=== PATIENT | female | born 1990 | race Native Hawaiian/Other Pacific Islander ===

== ENCOUNTER 2017-08-10 18:05 | Emergency (ER) | payer OTHER ==
[2017-08-10 18:24] VITALS: BP 137/65; PULSE 99; RESP 16; TEMP 98; O2SAT 100
--- NOTE | 2017-08-10 18:59 | ED PDOC ---
HPI: Skin/Bite Injury Time Seen by Provider: 08/10/17 18:39 Chief Complaint (Nursing): Lower Extremity Problem/Injury Chief Complaint (Provider): Swelling to right thigh History Per: Patient History/Exam Limitations: no limitations Onset/Duration Of Symptoms: Days (x 2) Current Symptoms Are (Timing): Still Present Additional Complaint(s): Shanna is 26 y/o female who presents to the ED complaining of swelling on her right inner thigh first noticed yesterday. Took Tylenol for pain prior to arrival with some improvement. She has noticed some drainage from the swelling. Denies fever, nausea, chills and vomiting. Swelling is causing patient pain. PMD: non-[facility] provider Past Medical History Reviewed: Historical Data, Nursing Documentation, Vital Signs Vital Signs: Last Vital Signs Temp 98 F 08/10/17 18:23 Pulse 99 H 08/10/17 18:23 Resp 16 08/10/17 18:23 BP 137/65 08/10/17 18:23 Pulse Ox 100 08/10/17 19:06 - Medical History PMH: No Chronic Diseases - Family History Family History: States: Unknown Family Hx - Home Medications Home Medications: Ambulatory Orders Medication Instructions Recorded Cephalexin [cephalexin] 500 mg PO BID #20 cap 08/10/17 Clindamycin [Cleocin] 300 mg PO TID #30 cap 08/10/17 - Allergies Allergies/Adverse Reactions: Allergies Allergy/AdvReac Type Severity Reaction Status Date / Time No Known Allergies Allergy Verified 05/30/16 20:48 Review of Systems ROS Statement: Except As Marked, All Systems Reviewed And Found Negative Constitutional: Negative for: Fever, Chills Gastrointestinal: Negative for: Nausea, Vomiting Musculoskeletal: Positive for: Leg Pain (pain and swelling at right thigh. ), Other (drainage from swelling) Physical Exam - Reviewed Nursing Documentation Reviewed: Yes Vital Signs Reviewed: Yes - Physical Exam Appears: Positive for: Non-toxic, No Acute Distress Head Exam: Positive for: ATRAUMATIC, NORMAL INSPECTION, NORMOCEPHALIC Skin: Positive for: Rash (rash: noted to right thigh-central lesion sized 1x1cm with surronding erythema with streaking warmth and tenderness) - ECG O2 Sat by Pulse Oximetry: 100 - Progress ED Course And Treament: dx: cellulites/abscess rx: clindamycin/keflex unable to drain lesion-lesion is indurated. area marked advised if redness worsened to return to ER for IV abx. Temp Pulse Resp BP Pulse Ox 98 F 99 H 16 137/65 100 08/10/17 18:23 08/10/17 18:23 08/10/17 18:23 08/10/17 18:23 08/10/17 19:21 Medical Decision Making Medical Decision Making: f/u with pmd in 3d. Disposition - Clinical Impression Clinical Impression: Cellulitis, Abscess - Patient ED Disposition Is Patient to be Admitted: No Counseled Patient/Family Regarding: Studies Performed, Diagnosis, Need For Followup, Rx Given - Disposition Disposition: Routine/Home Disposition Time: 19:27 Condition: STABLE Prescriptions: Cephalexin [cephalexin] 500 mg PO BID #20 cap Clindamycin [Cleocin] 300 mg PO TID #30 cap Instructions: Abscess Follow-up (ED) Forms: [employer] (Swedish)
== END 2017-08-10 19:51 | disposition home or self-care (01) ==
LOC: H.ER 18:05
DX: L02.415 Cutaneous abscess of right lower limb (principal)